=== PATIENT | female | born 1995 | race Caucasian/White ===

== ENCOUNTER 2017-12-01 10:46 | Emergency (ER) | payer MEDICAID ==
[~2017-12-01] VITALS: Ht 149.9 cm; Wt 59.0 kg
[2017-12-01 10:53] VITALS: BP_SYST 138
[2017-12-01 12:11] VITALS: BP_SYST 136
== END 2017-12-01 12:11 | disposition home or self-care (01) ==
LOC: SED 10:46
DX: K64.4 Residual hemorrhoidal skin tags (principal)
CPT/HCPCS: 81025; 99282